=== PATIENT | male | born 1970 | race Caucasian/White ===

== ENCOUNTER 2016-10-15 07:17 | Day surgery (SDC) | payer OTHER ==
[~2016-10-15] VITALS: Ht 175.3 cm; Wt 89.8 kg
[~2016-10-15 07:17] MED LIST: 0.9% Sodium Chloride 1,000 ML IV SCH; OLP.1OP5 OD; PRED50TA PO; Sodium Chloride LOK Flush 10 mL Syringe IV PRN; fentaNYL-PF 50 mCg/mL 2 mL Inj IVPUSH PRN
[2016-10-15 07:36] VITALS: BP 139/96; PULSE 80; RESP 16; O2SAT 96
[2016-10-15 08:28] VITALS: BP 141/81; PULSE 81; RESP 16; O2SAT 93
--- NOTE | 2016-10-15 08:28 | PCM.ENDCOL ---
Colonoscopy Date of Service: Oct 15, 2016 Physician Galen Enriquez MD Indication for Procedure Abdominal pain and constipation alternating with diarrhea Post Procedure Dx & Findings: Hemorrhoids Procedure Colonoscopy Prep adequate Cecal time 3 minutes Withdrawal time 11 minutes Procedure After unremarkable rectal examination Olympus video colonoscope was inserted into patient's anal canal and advanced to cecum. Landmarks are identified including the ileocecal valve and appendiceal orifice. Scope further events to the terminal ileum we have asked about 8 cm. Normal healthy villous structure noted without any ulcers masses or erosion. The mucosa of the cecum, ascending, transverse, descending, sigmoid, rectal mucosa lined with whitish, pink, smooth, glistening, normal-appearing mucosa, normal fine branching, underlying vascularity, normal haustra. The patient tolerated procedure and was transported to observation area. In the rectum retroflexion was done which showed hemorrhoids anal canal was inspected carefully and the way out and hemorrhoids noted. Impression Normal TI Normal colon Hemorrhoids Recommendation Repeat colonoscopy 10 years if there is no family history of colon cancer colon polyp. EGD. There is no source of his abdominal pain and nausea vomiting. Presedation Assessment Risks and Benefits Informed consent was obtained from the patient after all risks and benefits including but not limited to drug reaction, infection, pain, bleeding, perforation, as well as alternatives were discussed. Patient monitoring Continuous pulse oximetry, cardiac monitoring, blood pressure monitoring, IV access, and oxygen at 2L per nasal cannula. Periprocedural Fentanyl: Fentanyl 75mcg Incrementally Midazolam: Midazolam 3mg Incrementally Complications There were no periprocedural complications identified. Post Procedure Plan Post Procedure Recommendations 1. Restrict activities today. 2. Resume normal activities in the morning. 3. Resume medications. 4. Patient informed of normal post procedure side effects as bloating, drowsiness, blood streaking in the stool. 5. average risk CRCS. If colon polyps come back as: -Hyperplastic- can repeat colonoscopy in 10 years -Tubular adenoma- repeat colonoscopy in 5 years -Tubulovillous/villous adenoma- repeat colonoscopy in 3 years -If any dysplasia- return to clinic as soon as possible 6. Please don't hesitate to call me with any questions. Galen Enriquez MD Oct 15, 2016 08:27
[2016-10-15 08:38] VITALS: BP 140/88; PULSE 74; RESP 14; O2SAT 97
[2016-10-15 08:44] VITALS: BP 127/96; PULSE 80; RESP 12; O2SAT 96
== END 2016-10-15 23:59 | disposition home or self-care (01) ==
LOC: END 07:17
PROVIDERS: ATTEND Internal Medicine
DX: R19.7 Diarrhea, unspecified (principal); K59.00 Constipation, unspecified; R10.9 Unspecified abdominal pain; K64.9 Unspecified hemorrhoids
CPT/HCPCS: 45378; G0500; J2250; J7030